=== PATIENT | male | born 1980 | race Caucasian/White ===

== ENCOUNTER 2018-02-02 14:24 | Outpatient (REF) | payer OTHER, SELFPAY ==
[2018-02-02 15:17] LABS: Abs Immature Grans 0.02 k/cumm (0.0-0.09); Absolute Basophil Count 0.05 k/cumm (0.0-0.2); Absolute Lymphocyte Count 3.01 k/cumm (1.2-3.4); Absolute Monocyte Count 0.92 k/cumm (0.11-0.7); Absolute Neutrophil Count 5.86 k/cumm (1.2-6.7); Basophils % 0.5; HCT 41.8 % (40.0-50.0); HGB 13.8 g/dL (13.5-17.5); Immature Grans % 0.2; Lymphocytes % 29.9; Mean Corpuscular Hemoglobin 29.7 pg (27.0-33.0); Mean Corpuscular Volume 89.9 fL (80-95); Monocytes % 9.1; Neutrophils % 58.3; Platelet Count 258 x1000/uL (130-400); RBC 4.65 m/cumm (4.50-6.00); RBC Distribution Width 14.3 % (11.8-14.1); White Blood Cell Count 10.06 k/cumm (4.4-10.8)
[2018-02-02 15:50] LABS: ALT 26 U/L (12-78); AST 18 U/L (15-37); Albumin 3.8 g/dL (3.4-5.0); Alkaline Phosphatase 81 U/L (46-116); Anion Gap 7.9 mmol/L (3-11); BUN 14 mg/dL (7-18); Bilirubin, Total 0.2 mg/dL (0.2-1.0); CO2 29.1 mmol/L (21.0-32.0); CREATININE 0.96 mg/dL (0.70-1.30); Calcium 8.7 mg/dL (8.5-10.1); Chloride 102 mmol/L (98-107); Glucose 107 mg/dL (70-100); Potassium 3.8 mmol/L (3.5-5.1); Sodium 139 mmol/L (136-145); Total Protein 6.6 g/dL (6.4-8.2)
[2018-02-03 09:49] LABS: Hepatitis B Surface Ag Negative (NEGAT)
[2018-02-03 10:05] LABS: HIV-1/2 Ag & Ab Screen Negative (NEGAT)
[2018-02-03 10:09] LABS: Hepatitis C Ab w Rflx HCV PCR Negative (NEGAT)
[2018-02-03 10:35] LABS: HBs Antibody, Quant <3.1 mIU/mL; Hepatitis B Surface Ab Negative
[2018-02-03 13:07] LABS: Syphilis Serology (RPR) Negative (Negative)
== END 2018-02-02 14:44 ==
LOC: NCHCN 14:24
PROVIDERS: Visit Provider Nurse Practitioner Family
DX: F11.20 Opioid dependence, uncomplicated (principal); Z11.3 Encounter for screening for infections with a predominantly sexual mode of transmission; F19.21 Other psychoactive substance dependence, in remission; L81.8 Other specified disorders of pigmentation
CPT/HCPCS: 80053; 86706; 86803; 87340; 87389; 85025; 86592